=== PATIENT | male | born 1955 | race African-American/Black ===

== ENCOUNTER 2022-03-12 17:22 | Inpatient (IN) | payer OTHER, MEDICARE, MEDICAID, SELFPAY ==
--- NOTE | 2022-03-12 17:30 | ED_ITS ---
HPI - Psych General Stated Complaint: SEC 12,SI/HI,SAW BHN IN COMM,BED SEARCH IN PROG Time Seen by Provider: 03/12/22 17:30 Source: patient and EMS Mode of arrival: EMS Limitations: no limitations History of Present Illness HPI Narrative: Patient comes to the emergency room complaining depression, anxiety, suicidal ideation, plan to overdose on Seroquel. Patient states that earlier today, he took several tablets of gabapentin 600 mg, estimates he had about 8-10, also took 8-10 tablets of Xanax. Patient was seen earlier today at the [facility] outpatient center. Patient was Section 12 and brought to emergency room. Patient confirms that he has suicidal ideation, no homicidal ideation. Related Data Allergies Allergy/AdvReac Type Severity Reaction Status Date / Time Unable to Assess Allergy Verified 03/12/22 17:31 Review of Systems Review of Systems: Constitutional : No Weight loss, No Fever, No Chills, No Night Sweats, No Fatigue, No Malaise ENT/Mouth : No Hearing loss, No Ear Pain, No Nasal Congestion, No Sinus Pain, No Hoarseness, No sore throat, No Rhinorrhea, No Swallowing Difficulty Eyes: No Eye Pain, No Swelling, No Redness, No Foreign Body, No Discharge, No Vision Changes Cardiovascular : No Chest Pain, No SOB, No Dyspnea on Exertion, No Orthopnea, No Edema, No Palpitations Respiratory : No Cough, No Sputum, No Wheezing, No Smoke Exposure, No Dyspnea Gastrointestinal : No Nausea, No Vomiting, No Diarrhea, No Constipation, No abdominal Pain, No Hematochezia, No Melena Genitourinary : no irregular bleeding, No Dysuria, No Urinary Frequency, No Hematuria, No Urinary Incontinence, No Urgency, No Flank Pain, No Urinary Flow Changes, No Hesitancy Musculoskeletal : No joint pain, No Myalgias, No Joint Swelling Skin : No Skin Lesions, No rash Neuro : No Weakness, No Numbness, No Paresthesias, No Loss of Consciousness, No Dizziness, No Headache Psych : Complaining of anxiety, depression and suicidal ideation, no homicidal ideation Heme/Lymph: No Bruising, No Bleeding,No Lymphadenopathy Endocrine : No Polyuria, No Polydipsia, No Temperature Intolerance Physical Exam Const: Other: Appearance: Alert. Oriented X3. No acute distress. Eyes: Pupils equal, round and reactive to light. ENT: Pharynx normal. Neck: Normal inspection. Neck supple. No lymph nodes noted. No crepitus CVS: Normal heart rate and rhythm. Pulses normal. Normal S1 and S2 Respiratory: No respiratory distress. Breath sounds normal. No Wheezing. No rales Abdomen: Soft and nontender. No rigidity. No distention. Skin: Skin warm and dry. Normal skin color. Normal skin turgor. Extremities: No lower extremity edema. No Lacerations. No Rash Neuro: Oriented X 3. No motor deficit. No sensory deficit. Moving all e xtremities. No slurred speech. CN 2 through 12 grossly intact Psych: calm, cooperative, normal affect Course Course Course Narrative: All of patient's labs are pending. Seems the patient missed uses Xanax and gabapentin. Seems that patient refilled his medications 3 days ago and now they are all gone. Patient is on a Section 12. Discharge Plan Discharge Clinical Impression: Suicidal ideation Patient Disposition: Still a Patient
--- NOTE | 2022-03-12 17:31 | ECG_ITS ---
Test Reason : ALTERED MENTAL STATUS Blood Pressure : / mmHG Vent. Rate : 068 BPM Atrial Rate : 068 BPM P-R Int : 140 ms QRS Dur : 086 ms QT Int : 410 ms P-R-T Axes : 069 076 073 degrees QTc Int : 435 ms Sinus rhythm with Premature atrial complexes Otherwise normal ECG No previous ECGs available Referred By: Micaela Morley Electronically Signed By:Mehdi Rivera
[2022-03-12 17:57] VITALS: BP 118/74; BP 120/86; PULSE 70; PULSE 76; RESP 18; TEMP 36.8; O2SAT 98; O2SAT 99; BMI 22.4
[2022-03-12 18:45] LABS: MANUAL DIFF FLAG NO
[2022-03-12 18:54] LABS: Basophils Percent Auto 0.4 % (0-2); Eosinophils Absolute Auto 0.3 X10*3/uL (0.0-0.4); Eosinophils Percent Auto 5.2 % (0-4); Hematocrit 43.2 % (42.0-52.0); Hemoglobin 14.2 g/dl (14.0-18.0); Imm Gran Abs Auto 0.01 X10*3/uL (0.00-0.03); Imm Gran Pct Auto 0.2 % (0.0-0.4); Lymphocytes Absolute Auto 1.8 X10*3/uL (1.2-4.9); Lymphocytes Percent Auto 35.5 % (20-40); Mean Corpuscular HGB Conc 32.9 g/dl (31.0-36.0); Mean Corpuscular Hemoglobin 32.8 pg (27.0-33.0); Mean Corpuscular Volume 99.8 fL (80.0-98.0); Mean Platelet Volume 8.9 fL (9.4-12.4); Monocytes Absolute Auto 0.5 X10*3/uL (0.1-1.2); Monocytes Percent Auto 9.7 % (2-11); Neutrophils Absolute Auto 2.4 x10*3/uL (2.0-8.3); Platelet Count 162 X10*3/uL (160-400); Red Blood Count 4.33 X10*6/uL (4.60-5.80); Red Cell Distribution Width 12.1 % (11.0-16.0)
[2022-03-12 19:04] LABS: COVID-19 Test Negative (Negative)
[2022-03-12 19:07] LABS: Alanine Aminotransferase 8 U/L (0-40); Albumin Level 4.7 g/dL (3.5-5.0); Alkaline Phosphatase 64 U/L (39-117); Anion Gap 11 (12-20); Aspartate Amino Transferase 15 U/L (5-37); Bilirubin Direct 0.3 mg/dL (0.0-0.5); Bilirubin Total 0.7 mg/dL (0.0-1.0); Blood Urea Nitrogen 12 mg/dL (9-16); Calcium 9.2 mg/dL (8.4-10.2); Carbon Dioxide 29 mmol/L (22-29); Chloride 104 mmol/L (96-108); Creatinine Clr Calc Pharmacy 60.8; Estimated Glomerular Filt Rate 59; Ethanol < 10 mg/dL; Glucose Random 89 mg/dL (60-115); Potassium 3.9 mmol/L (3.3-5.1); Sodium 140 mmol/L (135-145); Total Protein 7.2 g/dL (6.5-8.0)
[2022-03-12 19:19] LABS: Acetaminophen LAB < 1 mcg/mL (<30); Salicylate < 5.0 mg/dL (15-30)
[2022-03-12 22:18] LABS: Appearance Urine CLEAR; Color Urine YELLOW; Glucose Urine UA NEG (NEG); Leukocyte Esterase Urine NEG (NEG); Nitrite Urine NEG (NEG); Urine Blood NEG (NEG); Urine Ketones NEG (NEG); Urine Protein NEG (NEG-TRACE)
[2022-03-13] MEDS: QUEtiapine Fumarate 400 MG TABLET 800 MG PO ×2 (01:15→19:31)
[2022-03-13 02:48] LABS: Amphetamine Screen Urine Not Detected (Not Detect); Barbiturates, Urine Not Detected (Not Detect); Benzodiazepines Screen Urine POSITIVE (Not Detect); Cannabinoid Screen Urine Not Detected (Not Detect); Cocaine Screen Urine POSITIVE (Not Detect); Fentanyl, urine Not Detected (Not Detect); Opiate Screen Urine Not Detected (Not Detect); Phencyclidine Screen Urine Not Detected (Not Detect)
[2022-03-13 05:57] VITALS: BP 92/63; PULSE 100; RESP 16; TEMP 36.1; O2SAT 96
--- NOTE | 2022-03-13 06:42 | PC.NURSE ---
Patient slept through the night, no distress observed/reported, medication compliant, disposition per [facility] is section 12 inpatient bed search, VSS, behavior suitable and non concerning, will continue to monitor.
--- NOTE | 2022-03-13 07:20 | PC.NURSE ---
patient appears to remain asleep at present respirations are even and unlabored patient appears in no distress
[2022-03-13] MEDS: Gabapentin 300 MG CAPSULE PO ×2 (08:05→14:32)
[2022-03-13] MEDS: Omeprazole 20 MG CAPSULE.DR PO (08:05)
[2022-03-13] MEDS: Folic Acid 1 MG TABLET PO (08:05)
[2022-03-13] MEDS: BRINZOLAMIDE BRIMONIDINE EYE-BOTH (08:55)
[2022-03-13] MEDS: [UNRECOGNIZED DRUG - OTHER] EYE-BOTH (08:55)
--- NOTE | 2022-03-13 16:18 | PC.ADMIT ---
Pt is a 66 year old male who [place] [facility] [place]x 1530 on a cv status. Pt is covid- tox screen + for cocaine and benzo. 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 Pt reported that his Lt eye is starting to give him trouble . Pt reported that he drinks about 5 32oz of beer daily along with cocaine and THC. Pt denied being in withdrawals and reported that he is just coming out of it . Pt reported that he has injured his neck and back in the past. Pt reported poor sleep and needing medications to aid in his sleep. Pt reported that he has had two falls before being admitted to the hospital. Pt reports that he has a VNA come visit him at his apartment. Pt reports that he has an electric wheel chair in his apartment that he uses to get around. Pt mentioned that he has a civil court pending due to an eviction pending. Per chart review, Pt was assessed by [facility] on 03/12 reporting increased depression, anxiety, and stress as well as SI earlier 03/12 w/plan, means and intent to Overdose on Seroquel just prior to getting through to [facility] Crisis. Pt reported increased anger & indicated thoughts to harm his neighbors whom he feels is responsible for pts pending eviction. Pt has additionally been presenting as high risk of unintentional harm to self due to misusing his prescription meds including Xanax & Gabapentin. Pt reportedly filled both on 03/09 & does not have any left, which he has also been taking while under the influence of alcohol daily. Provider called and notified of admission and orders. Start treatment plan and monitor for safety.
--- NOTE | 2022-03-13 16:46 | P.HPPS_ITS ---
HPI Date of Service: 03/13/22 Chief Complaint: depression anxiety xanax gabapentin overdose Sources of Information: patient interviewed, chart reviewed and crisis/core team assessment reviewed HPI Subjective Notes: Cheung Warning and Conditional Voluntary Healthcare Proxy: No Guardianship: No Medical Problems Affecting Mental Status: No Narrative: Pt is a 66 y.o. Male who carries a dx of crack cocaine abuse, alcohol use disorder, and Bipolar I DO. 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 Pt contacted [facility] crisis himself to request an assessment seeking CCS, after he had been denied from Detox due to them not accepting his insurance. He presented [place] [facility] [place]22 due to SI with plan to OD on his medications and disclosed a recent suicide attempt by overdosing on his medication, took 8-10 gabapentin 300 mg tabs and 8-10 Xanax 1 mg tabs. He is not in withdrawal, did not require medical attention. Pt refilled his m edications 3 days ago but they are all gone, appears to be misusing his medication. Precipitating factors include that his neighbor is racist towards him, feels he is responsible for pt's pending eviction. Pt is trying to work this out with the housing court. His brother also recently , which has brought up other losses the pt experienced. Pt has also been drinking daily, last drank a 32 oz beer on 03/12/22 but was not treated for withdrawal in the ED and currently denies any sx, prescribed xanax 1 mg TID and gabapentin 300 mg TID. His drinking behavior is new as of a few months ago, prior to that pt?s drug of choice was crack cocaine and he uses this when available. I evaluated the pt this evening and he reports he is at the hospital because respite didnt have a bed and his insurance would not cover detox. Pt denies withdrawing from alcohol or illicit substances. Says his neighbor ?is on the racist side,? believes he filed false reports about pt in order to get him evicted. Pt says he started abusing alcohol 4-5 months ago due to increased anxiety, only drinks beer but says this ?escalated to more and more beer.? Says he wants to ?catch it before gets too bad,? hx of attending AA. States his main stressor is ?to try to keep from being evicted,? working with community legal office administrator. Says his brother recently from complications of alcohol abuse, covid, and stroke. Mood is ?depressed,? continues to endorse passive SI with a plan to overdose on his prescription meds but denies intent and says he feels safe. Medical Evaluation Reviewed: Yes Diagnostics Vital Signs (24Hr): Vital Signs - 24 hr 03/12/22 17:57 03/13/22 05:57 Temperature 98.3 F 96.9 F Pulse Rate 76 100 Respiratory Rate 18 16 Blood Pressure 120/86 92/63 Pulse Oximetry 99 96 Oxygen Delivery Method Room Air Room Air BMI result Body Mass Index 22.4 Labs Results: 03/12/22 18:39 03/12/22 18:40 Labs: Laboratory Results - last 48 hr 03/12/22 03/12/22 03/12/22 18:39 18:39 18:40 WBC 5.0 RBC 4.33 L Hgb 14.2 Hct 43.2 MCV 99.8 H MCH 32.8 MCHC 32.9 RDW 12.1 Plt Count 162 MPV 8.9 L Immature Gran % (Auto) 0.2 Neut % (Auto) 49.0 Lymph % (Auto) 35.5 [place] % (Auto) 9.7 Eos % (Auto) 5.2 H Baso % (Auto) 0.4 Lymph # (Auto) 1.8 [place] # (Auto) 0.5 Eos # (Auto) 0.3 Baso # (Auto) 0.0 Abs Immat Gran (auto) 0.01 Absolute Neuts (auto) 2.4 Absolute Nucleated RBC 0.000 Nucleated RBC % (auto) 0.0 Sodium 140 Potassium 3.9 Chloride 104 Carbon Dioxide 29 Anion Gap 11 L BUN 12 Creatinine 1.23 Estim Creat Clear Calc 60.8 Estimated GFR 59 Random Glucose 89 Calcium 9.2 Total Bilirubin 0.7 Direct Bilirubin 0.3 AST 15 ALT 8 Alkaline Phosphatase 64 Total Protein 7.2 Albumin 4.7 Urine Color Urine Appearance Urine pH Ur Specific [place] Urine Protein Urine Glucose (UA) Urine Ketones Urine Blood Urine Nitrite Ur Leukocyte Esterase Salicylates < 5.0 L Urine Opiates Screen Urine Fentanyl Screen Acetaminophen < 1 Ur Barbiturates Screen Ur Phencyclidine Scrn Ur Amphetamines Screen U Benzodiazepines Scrn Urine Cocaine Screen U Marijuana (THC) Screen Ethyl Alcohol < 10 COVID-19 (LIANG) Negative COVID-19 Clin Com See Note 03/12/22 03/12/22 22:08 22:08 WBC RBC Hgb Hct MCV MCH MCHC RDW Plt Count MPV Immature Gran % (Auto) Neut % (Auto) Lymph % (Auto) [place] % (Auto) Eos % (Auto) Baso % (Auto) Lymph # (Auto) [place] # (Auto) Eos # (Auto) Baso # (Auto) Abs Immat Gran (auto) Absolute Neuts (auto) Absolute Nucleated RBC Nucleated RBC % (auto) Sodium Potassium Chloride Carbon Dioxide Anion Gap BUN Creatinine Estim Creat Clear Calc Estimated GFR Random Glucose Calcium Total Bilirubin Direct Bilirubin AST ALT Alkaline Phosphatase Total Protein Albumin Urine Color YELLOW Urine Appearance CLEAR Urine pH 6.0 Ur Specific [place] 1.020 Urine Protein NEG Urine Glucose (UA) NEG Urine Ketones NEG Urine Blood NEG Urine Nitrite NEG Ur Leukocyte Esterase NEG Salicylates Urine Opiates Screen Not Detected Urine Fentanyl Screen Not Detected Acetaminophen Ur Barbiturates Screen Not Detected Ur Phencyclidine Scrn Not Detected Ur Amphetamines Screen Not Detected U Benzodiazepines Scrn POSITIVE H Urine Cocaine Screen POSITIVE H U Marijuana (THC) Screen Not Detected Ethyl Alcohol COVID-19 (LIANG) COVID-19 Clin Com Meds/Allergies Meds Home Medications Medication Instructions Recorded Confirmed Type alprazolam 1 mg tablet 1 tab PO TID PRN Anxiety 03/12/22 03/12/22 History folic acid 1 mg tablet 1 tab PO DAILY 03/12/22 03/12/22 History gabapentin 300 mg capsule 1 cap PO TID 03/12/22 03/12/22 History omeprazole 20 mg capsule,delayed 1 cap PO DAILY 03/12/22 03/12/22 History release quetiapine 400 mg tablet 2 tab PO BEDTIME 03/12/22 03/12/22 History trazodone 100 mg tablet 1 tab PO BEDTIME 03/12/22 03/12/22 History brinzolamide 1 %-brimonidine 0.2 % 1 drp ophthalmic (eye) BID 03/13/22 03/13/22 History eye drops,suspension (Simbrinza) netarsudil 0.02 %-latanoprost 1 drp ophthalmic (eye) BEDTIME 03/13/22 03/13/22 History 0.005 % eye drops (Rocklatan) Allergies Allergies Allergy/AdvReac Type Severity Reaction Status Date / Time No Known Allergies Allergy Verified 03/12/22 21:52 Assessment & Plan Assessment & Plan (1) CRISTINA (generalized anxiety disorder): Status: Acute Code(s): F41.1 - Generalized anxiety disorder (2) Bipolar 1 disorder: Status: Acute Code(s): F31.9 - Bipolar disorder, unspecified (3) Alcohol use disorder, moderate, dependence: Status: Acute Code(s): F10.20 - Alcohol dependence, uncomplicated (4) Cocaine use disorder: Status: Acute Code(s): F14.10 - Cocaine abuse, uncomplicated Plan Pt is a 66 y.o. Male who carries a dx of crack cocaine abuse, alcohol use disorder, and Bipolar I DO. 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 Pt contacted [facility] crisis himself to request an assessment seeking CCS, after he had been denied from Detox due to them not accepting his insurance. He presented to [facility] [place] on 03/12/22 due to SI with plan to OD on his medications and disclosed a recent suicide attempt by overdosing on his medication. He is not in withdrawal, did not require medical attention. Pt refilled his medications 3 days ago but they are all gone, appears to be misusing his medication. Pt has also been drinking daily, last drank a 32 oz beer on 03/12/22 but was not treated for withdrawal in the ED and currently denies any sx, prescribed xanax 1 mg TID and gabapentin 300 mg TID. His increased drinking behavior is new as of a few months ago, prior to that pt?s drug of choice was crack cocaine and he uses this when available. Pt has long hx of stability on gabapentin 800 mg TID, xanax 1 mg QID, and seroquel 800 mg daily. He has remote hx of being on lithium but this was discontinued due to elevated creatinine. Pt's bipolar diagnosis is unclear, as he endorses sx of impulsivity, however no clear hx of manic episodes. It appears pt has been on mood stabilizing medication to manage anxiety, PTSD, panic sx,and to help with sleep. Plan: Will increase gabapentin to 400 mg TID for anxiety, neuropathic pain, and mood stability due to reported benefit on higher doses. understands that his xanax will likely not be restored to QID during this inpatient stay due to his alcohol and substance abuse. Pt may benefit from VNA and increased community services, has ACCS but has not been engaging as of late. Q15 min safety checks, CV Monitor response to medications. Monitor for safety in the milieu. Discharge on stabilization. Patient seen. Chart reviewed. Discussed with team. Obtain collateral contact info?as needed Patient educated on: medication risk/benefits and therapeutic strategies Reason for continued inpatient stay Substantial Risk for: harm to self, rapid decompensation and med/psych decompensation
[2022-03-13 17:24] VITALS: BP 116/62; PULSE 65
[2022-03-13] MEDS: traZODone HCL 100 MG TABLET PO (19:32)
[2022-03-13] MEDS: ALPRAZolam 0.5 MG TABLET 1 MG PO (19:32)
[2022-03-13] MEDS: Gabapentin 400 MG CAPSULE PO (19:33)
[2022-03-14 06:00] VITALS: BP 105/69; PULSE 91; TEMP 36.2; O2SAT 98
[2022-03-14] MEDS: [UNRECOGNIZED DRUG - OTHER] EYE-BOTH ×2 (08:36→20:46)
[2022-03-14] MEDS: BRINZOLAMIDE BRIMONIDINE EYE-BOTH ×2 (08:36→20:46)
[2022-03-14] MEDS: Gabapentin 400 MG CAPSULE PO ×3 (08:36→20:37)
[2022-03-14] MEDS: Folic Acid 1 MG TABLET PO (08:36)
[2022-03-14] MEDS: Omeprazole 20 MG CAPSULE.DR PO (08:37)
[2022-03-14 09:38] LABS: Cholesterol 171 mg/dL; HDL Cholesterol 72 mg/dL; LDL Cholesterol Calculated 86 mg/dl; Magnesium 2.1 mg/dL (1.6-2.6); Triglycerides 67 mg/dL
[2022-03-14 09:51] LABS: Estimated Average Glucose 77 mg/dL; Hemoglobin A1c % 4.3 %
[2022-03-14 10:02] LABS: Free T4 (Free Thyroxine) 0.76 ng/dL (0.71-1.85); Thyroid Stimulating Hormone 0.62 uIU/mL (0.32-4.0)
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
[2022-03-14 11:22] LABS: Folate 14.6 ng/mL (> or = 4.0); Vitamin B12 309 pg/mL (200-900)
[2022-03-14] MEDS: chlordiazePOXIDE HCl 5 MG CAPSULE 10 MG PO (15:40)
[2022-03-14] MEDS: Thiamine HCL 100 MG TABLET PO (15:41)
[2022-03-14 18:00] VITALS: BP 103/61; PULSE 63; RESP 18; TEMP 36.6; O2SAT 98
[2022-03-14] MEDS: QUEtiapine Fumarate 400 MG TABLET 800 MG PO (20:37)
[2022-03-14] MEDS: traZODone HCL 100 MG TABLET PO (20:37)
[2022-03-14] MEDS: ALPRAZolam 0.5 MG TABLET 1 MG PO (20:46)
[2022-03-15 06:34] VITALS: BP 92/54; PULSE 70; RESP 14; TEMP 37; O2SAT 96
[2022-03-15] MEDS: Folic Acid 1 MG TABLET PO (08:27)
[2022-03-15] MEDS: Gabapentin 400 MG CAPSULE PO ×3 (08:27→20:21)
[2022-03-15] MEDS: Omeprazole 20 MG CAPSULE.DR PO (08:27)
[2022-03-15] MEDS: Thiamine HCL 100 MG TABLET PO (08:28)
[2022-03-15] MEDS: BRINZOLAMIDE BRIMONIDINE EYE-BOTH ×2 (08:30→20:23)
[2022-03-15] MEDS: [UNRECOGNIZED DRUG - OTHER] EYE-BOTH ×2 (08:30→20:23)
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
[2022-03-15 18:00] VITALS: BP 109/79; PULSE 98; RESP 16; TEMP 36.6; O2SAT 99
[2022-03-15] MEDS: traZODone HCL 100 MG TABLET PO (20:21)
[2022-03-15] MEDS: QUEtiapine Fumarate 400 MG TABLET 800 MG PO (20:21)
[2022-03-16 06:00] VITALS: BP 94/53; PULSE 79; RESP 18; TEMP 36.5; O2SAT 96
[2022-03-16] MEDS: Omeprazole 20 MG CAPSULE.DR PO (08:34)
[2022-03-16] MEDS: Thiamine HCL 100 MG TABLET PO (08:34)
[2022-03-16] MEDS: Gabapentin 400 MG CAPSULE PO ×3 (08:34→19:38)
[2022-03-16] MEDS: clonazePAM 0.5 MG TABLET PO ×2 (08:34→14:20)
[2022-03-16] MEDS: Folic Acid 1 MG TABLET PO (08:34)
[2022-03-16] MEDS: [UNRECOGNIZED DRUG - OTHER] EYE-BOTH ×2 (12:18→19:41)
[2022-03-16] MEDS: BRINZOLAMIDE BRIMONIDINE EYE-BOTH ×2 (12:18→19:41)
--- NOTE | 2022-03-16 17:44 | HO.PSYADMNOT ---
HPI Date of Service: 03/16/22 Chief Complaint: depression anxiety xanax gabapentin overdose HPI Subjective Notes: [place] Warning Narrative: Patient seen and discussed with team. Patient evaluated today and upon interview he reports he feels good, not bad. Says they are feeding me well. Discussed increasing gabapentin to 600 mg TID in effort to restore home dose of 1000 mg TID. Wants to stay on xanax. Continues to complain of pain and seems to think xanax helps with pain. In the milieu, patient is safe and appropriate in behavior. Denies SI/SIB/HI upon inquiry. Denies irritability or assaultive ideation. Says he feels safe. Diagnostics Vital Signs (24Hr): Vital Signs - 24 hr 03/15/22 18:00 03/16/22 06:00 Temperature 97.9 F 97.7 F Pulse Rate 98 79 Respiratory Rate 16 18 Blood Pressure 109/79 94/53 L Pulse Oximetry 99 96 Oxygen Delivery Method Room Air Room Air BMI result Body Mass Index 22.4 Labs Results: 03/12/22 18:39 03/12/22 18:40 Meds/Allergies Meds Home Medications Medication Instructions Recorded Confirmed Type alprazolam 1 mg tablet 1 tab PO TID PRN Anxiety 03/12/22 03/12/22 History folic acid 1 mg tablet 1 tab PO DAILY 03/12/22 03/12/22 History gabapentin 300 mg capsule 1 cap PO TID 03/12/22 03/12/22 History omeprazole 20 mg capsule,delayed 1 cap PO DAILY 03/12/22 03/12/22 History release quetiapine 400 mg tablet 2 tab PO BEDTIME 03/12/22 03/12/22 History trazodone 100 mg tablet 1 tab PO BEDTIME 03/12/22 03/12/22 History brinzolamide 1 %-brimonidine 0.2 % 1 drp ophthalmic (eye) BID 03/13/22 03/13/22 History eye drops,suspension (Simbrinza) netarsudil 0.02 %-latanoprost 1 drp ophthalmic (eye) BEDTIME 03/13/22 03/13/22 History 0.005 % eye drops (Rocklatan) Allergies Allergies Allergy/AdvReac Type Severity Reaction Status Date / Time No Known Allergies Allergy Verified 03/12/22 21:52 Mental Status Exam Mental Status Exam Narrative: Pt is alert and oriented; behavior is cooperative, friendly and calm; patient is not in distress; dressed in casual attire with unkempt hair and marginal hygiene; mood is described as alright and affect congruent; eye contact appropriate; Speech is normal rate, volume and prosody and not pressured; no psychomotor agitation/retardation present; thought process is organized and goal directed; Thought content is on tx, eviction; otherwise pertinent to relevant topics and without any delusional content, paranoid ideations or grandiosity; still with some SI; no HI. There is no evidence of perceptual disturbance. ?Patients insight and judgment appear intact.
[2022-03-16 18:00] VITALS: BP 110/66; PULSE 83; TEMP 36.6; O2SAT 97
[2022-03-16] MEDS: Magnesium Hydrox/Alum Hydrox 30 ML ORAL.SUSP PO (19:37)
[2022-03-16] MEDS: traZODone HCL 100 MG TABLET PO (19:37)
[2022-03-16] MEDS: QUEtiapine Fumarate 400 MG TABLET 800 MG PO (19:37)
--- NOTE | 2022-03-16 23:09 | HO.PSYCHPN ---
Subjective Subjective Date of Service: 03/16/22 Reason For Visit: depression anxiety xanax gabapentin overdose Subjective Notes: Cheung Warning Interim History: Patient seen and discussed with team. Patient evaluated today and upon interview he reports he feels good, not bad. Says they are feeding me well. Discussed increasing gabapentin to 600 mg TID in effort to restore home dose of 1000 mg TID. Wants to stay on xanax. Continues to complain of pain and seems to think xanax helps with pain. In the milieu, patient is safe and appropriate in behavior. Denies SI/SIB/HI upon inquiry. Denies irritability or assaultive ideation. Says he feels safe. Mental Status Exam Mental Status Exam Narrative: Pt is alert and oriented; behavior is cooperative, friendly and calm; patient is not in distress; dressed in casual attire with unkempt hair and marginal hygiene; mood is described as alright and affect congruent; eye contact appropriate; Speech is normal rate, volume and prosody and not pressured; no psychomotor agitation/retardation present; thought process is organized and goal directed; Thought content is on tx, eviction; otherwise pertinent to relevant topics and without any delusional content, paranoid ideations or grandiosity; still with some SI; no HI. There is no evidence of perceptual disturbance. Patients insight and judgment appear intact. Diagnostics Vital Signs (24Hr): Vital Signs - 24 hr 03/16/22 06:00 03/16/22 18:00 Temperature 97.7 F 98 F Pulse Rate 79 83 Respiratory Rate 18 Blood Pressure 94/53 L 110/66 Pulse Oximetry 96 97 Oxygen Delivery Method Room Air BMI result Body Mass Index 22.4 Labs Results: 03/12/22 18:39 03/12/22 18:40 Medications Medications Current Medications Acetaminophen (Acetaminophen 325 Mg Tablet) 650 mg PO Q6H PRN PRN Reason: Headache/Pain Mild Scale (1-3) Al Hydroxide/Mg Hydroxide (Magnesium Hydrox/Alum Hydrox 30 Ml Oral.Susp) 30 ml PO Q6H PRN PRN Reason: Heartburn/Nausea Last Admin: 03/16/22 19:37 Dose: 30 ml Alprazolam (Alprazolam 0.5 Mg Tablet) 1 mg PO TID PRN PRN Reason: anxiety Clonazepam (Clonazepam 0.5 Mg Tablet) 0.5 mg PO BID@0900,1400 [facility] Last Admin: 03/16/22 14:20 Dose: 0.5 mg Clonidine HCl (Clonidine Hcl 0.1 Mg Tablet) 0.1 mg PO TID PRN; Protocol PRN Reason: hyperarousal Folic Acid (Folic Acid 1 Mg Tablet) 1 mg PO DAILY [facility] Last Admin: 03/16/22 08:34 Dose: 1 mg Gabapentin (Gabapentin 300 Mg Capsule) 600 mg PO TID [facility] Hydroxyzine HCl (Hydroxyzine Hcl 25 Mg Tablet) 25 mg PO Q6H PRN PRN Reason: Anxiety Ibuprofen (Ibuprofen 800 Mg Tablet) 800 mg PO TID PRN PRN Reason: mod pain Magnesium Hydroxide (Milk Of Magnesia 30 Ml Oral.Susp) 30 ml PO DAILY PRN PRN Reason: Constipation Non-Formulary Medication (Brinzolamide-Brimonidine [Simbrinza]) 1 drop EYE-BOTH BID [facility] Last Admin: 03/16/22 19:41 Dose: 1 drop Non-Formulary Medication (Netarsudil-Latanoprost [Rocklatan]) 1 drop EYE-BOTH BEDTIME [facility] Last Admin: 03/16/22 19:40 Dose: 1 drop Pt Own ( (Methazolamide 50 Mg)) 50 mg PO TID [facility] Last Admin: 03/16/22 20:08 Dose: 50 mg Omeprazole (Omeprazole 40 Mg Capsule.Dr) 40 mg PO DAILY [facility] Quetiapine Fumarate (Quetiapine Fumarate 400 Mg Tablet) 800 mg PO BEDTIME [facility] Last Admin: 03/16/22 19:37 Dose: 800 mg Thiamine HCl (Thiamine Hcl 100 Mg Tablet) 100 mg PO DAILY [facility] Last Admin: 03/16/22 08:34 Dose: 100 mg Trazodone HCl (Trazodone Hcl 100 Mg Tablet) 100 mg PO BEDTIME [facility] Last Admin: 03/16/22 19:37 Dose: 100 mg Allergies Allergies Allergy/AdvReac Type Severity Reaction Status Date / Time No Known Allergies Allergy Verified 03/12/22 21:52 Assessment & Plan Assessment & Plan (1) CRISTINA (generalized anxiety disorder): Status: Acute Code(s): F41.1 - Generalized anxiety disorder (2) Bipolar 1 disorder: Status: Acute Code(s): F31.9 - Bipolar disorder, unspecified (3) Alcohol use disorder, moderate, dependence: Status: Acute Code(s): F10.20 - Alcohol dependence, uncomplicated (4) Cocaine use disorder: Status: Acute Code(s): F14.10 - Cocaine abuse, uncomplicated Plan Pt is a 66 y.o. Male who carries a dx of crack cocaine abuse, alcohol use disorder, and Bipolar I DO. 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 Pt contacted [facility] himself to request an assessment seeking CCS, after he had been denied from [facility] due to them not accepting his insurance. He presented to [facility] ED on 03/12/22 due to SI with plan to OD on his medications and disclosed a recent suicide attempt by overdosing on his medication. He is not in withdrawal, did not require medical attention. Pt refilled his medications 3 days ago but they are all gone, appears to be misusing his medication. Pt has also been drinking daily, last drank a 32 oz beer on 03/12/22 but was not treated for withdrawal in the ED and currently denies any sx, prescribed xanax 1 mg TID and gabapentin 300 mg TID. His increased drinking behavior is new as of a few months ago, prior to that pt?s drug of choice was crack cocaine and he uses this when available. Pt has long hx of stability on gabapentin 800 mg TID, xanax 1 mg QID, and seroquel 800 mg daily. He has remote hx of being on lithium but this was discontinued due to elevated creatinine. Pt's bipolar diagnosis is unclear, as he endorses sx of impulsivity, however no clear hx of manic episodes. It appears pt has been on mood stabilizing medication to manage anxiety, PTSD, panic sx,and to help with sleep. 03/15 reports mood is better and no SI; patient wants to stay on Xanax and wants gabapentin increased back to 1000 t.i.d. for neuropathic pain.? Patient admits to prescription medication abuse, but minimizes the significance of it.? He says he is just starting with a VNA/lock box.? Final Inspector Balance Wheel agrees that if this is in place and patient is only getting 1 week worth of medications (instead of the 30 day supply) that it is possible he could be continued on Xanax 1 mg t.i.d.,, which he has been getting for almost 2 years, and the gabapentin could be increased back to home dose. 03/16 Will increase gabapentin to 600 mg TID Plan: Q15 min safety checks, CV continue Xanax 1mg TID (pt on this for 2 years) for now. Added Librium to help with w/drawals gabapentin to 400 mg TID for anxiety, neuropathic pain, and mood stability due to reported benefit on higher doses. understands that his xanax will likely not be restored to QID during this inpatient stay due to his alcohol and substance abuse. Pt has weekly VNA and increased community services; need to confirm locked box has ACCS but has not been engaging as of late. Monitor response to medications. Monitor for safety in the milieu. Discharge on stabilization. Patient seen. Chart reviewed. Discussed with team. Obtain collateral contact info as needed I spent minutes with the patient and/or on the patient floor today, greater than?50% of which was spent counseling/coordinating care. Patient educated on: medication risk/benefits Reason for contiued inpatient stay Substantial Risk for: med/psych decompensation
[2022-03-17 06:00] VITALS: BP 106/62; PULSE 78; RESP 18; TEMP 36.6; O2SAT 98
[2022-03-17] MEDS: clonazePAM 0.5 MG TABLET PO (08:50)
[2022-03-17] MEDS: Thiamine HCL 100 MG TABLET PO (08:50)
[2022-03-17] MEDS: Omeprazole 40 MG CAPSULE.DR PO (08:50)
[2022-03-17] MEDS: Folic Acid 1 MG TABLET PO (08:50)
[2022-03-17] MEDS: Gabapentin 300 MG CAPSULE 600 MG PO ×3 (08:50→21:04)
--- NOTE | 2022-03-17 11:40 | HO.PSYCHPN ---
Subjective Subjective Date of Service: 03/17/22 Reason For Visit: depression anxiety xanax gabapentin overdose Subjective Notes: Conditional Voluntary Healthcare Proxy: No Guardianship: No Medical Problems Affecting Mental Status: No Interim History: Patient was seen and discussed in rounds today. Records and plans were reviewed. He states that he continues to be quite anxious and isolative because of it. She he was recently put on Klonopin 0.5 mg b.i.d. and Xanax p.r.n. was maintained. I will increase the Klonopin to 1 mg b.i.d. for now. No suicidal ideations. Eating and sleeping adequately. No other changes were made today Medication Compliance: Yes Diagnostics Vital Signs (24Hr): Vital Signs - 24 hr 03/16/22 18:00 03/17/22 06:00 Temperature 98 F 97.9 F Pulse Rate 83 78 Respiratory Rate 18 Blood Pressure 110/66 106/62 Pulse Oximetry 97 98 BMI result Body Mass Index 22.4 Labs Results: 03/12/22 18:39 03/12/22 18:40 Medications Medications Current Medications Acetaminophen (Acetaminophen 325 Mg Tablet) 650 mg PO Q6H PRN PRN Reason: Headache/Pain Mild Scale (1-3) Al Hydroxide/Mg Hydroxide (Magnesium Hydrox/Alum Hydrox 30 Ml Oral.Susp) 30 ml PO Q6H PRN PRN Reason: Heartburn/Nausea Last Admin: 03/16/22 19:37 Dose: 30 ml Alprazolam (Alprazolam 0.5 Mg Tablet) 1 mg PO TID PRN PRN Reason: anxiety Clonidine HCl (Clonidine Hcl 0.1 Mg Tablet) 0.1 mg PO TID PRN; Protocol PRN Reason: hyperarousal Folic Acid (Folic Acid 1 Mg Tablet) 1 mg PO DAILY [facility] Last Admin: 03/17/22 08:50 Dose: 1 mg Gabapentin (Gabapentin 300 Mg Capsule) 600 mg PO TID [facility] Last Admin: 03/17/22 08:50 Dose: 600 mg Hydroxyzine HCl (Hydroxyzine Hcl 25 Mg Tablet) 25 mg PO Q6H PRN PRN Reason: Anxiety Ibuprofen (Ibuprofen 800 Mg Tablet) 800 mg PO TID PRN PRN Reason: mod pain Magnesium Hydroxide (Milk Of Magnesia 30 Ml Oral.Susp) 30 ml PO DAILY PRN PRN Reason: Constipation Non-Formulary Medication (Brinzolamide-Brimonidine [Simbrinza]) 1 drop EYE-BOTH BID [facility] Last Admin: 03/16/22 19:41 Dose: 1 drop Non-Formulary Medication (Netarsudil-Latanoprost [Rocklatan]) 1 drop EYE-BOTH BEDTIME [facility] Last Admin: 03/16/22 19:40 Dose: 1 drop Pt Own ( (Methazolamide 50 Mg)) 50 mg PO TID [facility] Last Admin: 03/17/22 08:50 Dose: 50 mg Omeprazole (Omeprazole 40 Mg Capsule.Dr) 40 mg PO DAILY [facility] Last Admin: 03/17/22 08:50 Dose: 40 mg Quetiapine Fumarate (Quetiapine Fumarate 400 Mg Tablet) 800 mg PO BEDTIME [facility] Last Admin: 03/16/22 19:37 Dose: 800 mg Thiamine HCl (Thiamine Hcl 100 Mg Tablet) 100 mg PO DAILY [facility] Last Admin: 03/17/22 08:50 Dose: 100 mg Trazodone HCl (Trazodone Hcl 100 Mg Tablet) 100 mg PO BEDTIME [facility] Last Admin: 03/16/22 19:37 Dose: 100 mg Allergies Allergies Allergy/AdvReac Type Severity Reaction Status Date / Time No Known Allergies Allergy Verified 03/12/22 21:52 Assessment & Plan Assessment & Plan (1) CRISTINA (generalized anxiety disorder): Status: Acute Code(s): F41.1 - Generalized anxiety disorder (2) Bipolar 1 disorder: Status: Acute Code(s): F31.9 - Bipolar disorder, unspecified (3) Alcohol use disorder, moderate, dependence: Status: Acute Code(s): F10.20 - Alcohol dependence, uncomplicated (4) Cocaine use disorder: Status: Acute Code(s): F14.10 - Cocaine abuse, uncomplicated Plan Pt is a 66 y.o. Male who carries a dx of crack cocaine abuse, alcohol use disorder, and Bipolar I DO. 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 Pt contacted [facility] crisis himself to request an assessment seeking CCS, after he had been denied from [facility] due to them not accepting his insurance. He presented to [facility] ED on 03/12/22 due to SI with plan to OD on his medications and disclosed a recent suicide attempt by overdosing on his medication. He is not in withdrawal, did not require medical attention. Pt refilled his medications 3 days ago but they are all gone, appears to be misusing his medication. Pt has also been drinking daily, last drank a 32 oz beer on 03/12/22 but was not treated for withdrawal in the ED and currently denies any sx, prescribed xanax 1 mg TID and gabapentin 300 mg TID. His increased drinking behavior is new as of a few months ago, prior to that pt?s drug of choice was crack cocaine and he uses this when available. Pt has long hx of stability on gabapentin 800 mg TID, xanax 1 mg QID, and seroquel 800 mg daily. He has remote hx of being on lithium but this was discontinued due to elevated creatinine. Pt's bipolar diagnosis is unclear, as he endorses sx of impulsivity, however no clear hx of manic episodes. It appears pt has been on mood stabilizing medication to manage anxiety, PTSD, panic sx,and to help with sleep. 03/15 reports mood is better and no SI; patient wants to stay on Xanax and wants gabapentin increased back to 1000 t.i.d. for neuropathic pain.? Patient admits to prescription medication abuse, but minimizes the significance of it.? He says he is just starting with a VNA/lock box.? Stitch Cleaner agrees that if this is in place and patient is only getting 1 week worth of medications (instead of the 30 day supply) that it is possible he could be continued on Xanax 1 mg t.i.d.,, which he has been getting for almost 2 years, and the gabapentin could be increased back to home dose. 03/16 Will increase gabapentin to 600 mg TID 03/17: Increase Klonopin to 1 mg b.i.d.. Plan: Q15 min safety checks, CV continue Xanax 1mg TID (pt on this for 2 years) for now. Added Librium to help with w/drawals gabapentin to 400 mg TID for anxiety, neuropathic pain, and mood stability due to reported benefit on higher doses. understands that his xanax will likely not be restored to QID during this inpatient stay due to his alcohol and substance abuse. Pt has weekly VNA and increased community services; need to confirm locked box has ACCS but has not been engaging as of late. Monitor response to medications. Monitor for safety in the milieu. Discharge on stabilization. Patient seen. Chart reviewed. Discussed with team. Obtain collateral contact info as needed I spent minutes with the patient and/or on the patient floor today, greater than?50% of which was spent counseling/coordinating care. Patient educated on: medication risk/benefits Reason for contiued inpatient stay Substantial Risk for: med/psych decompensation
[2022-03-17] MEDS: [UNRECOGNIZED DRUG - OTHER] EYE-BOTH ×2 (12:21→21:05)
[2022-03-17] MEDS: BRINZOLAMIDE BRIMONIDINE EYE-BOTH ×2 (12:21→21:05)
[2022-03-17] MEDS: clonazePAM 1 MG TABLET PO (14:30)
[2022-03-17 16:59] VITALS: BP 104/52; PULSE 78; RESP 20; TEMP 36.2; O2SAT 95
[2022-03-17] MEDS: traZODone HCL 100 MG TABLET PO (21:04)
[2022-03-17] MEDS: QUEtiapine Fumarate 400 MG TABLET 800 MG PO (21:04)
[2022-03-17] MEDS: Ibuprofen 800 MG TABLET PO (21:13)
[2022-03-18 06:00] VITALS: BP 111/76; PULSE 83; RESP 18; TEMP 36.3; O2SAT 98
--- NOTE | 2022-03-18 08:06 | P.PNPSI_ITS ---
Subjective Subjective Date of Service: 03/18/22 Reason For Visit: depression anxiety xanax gabapentin overdose Subjective Notes: Conditional Voluntary Healthcare Proxy: No Guardianship: No Medical Problems Affecting Mental Status: No Interim History: Patient was seen and discussed in rounds today. Records and plans were reviewed. He is doing better with his anxiety with the increase of Klonopin. He did use the p.r.n. Xanax on 1 occasion yesterday. He denies any side effects. Eating and sleeping adequately. He continues to be mostly isolative and in his room but this morning he was out and about and sitting in the dining room. No SI. No changes were made today Medication Compliance: Yes Review of Systems Review of Systems Yes all other systems are reviewed and are negative Diagnostics Vital Signs (24Hr): Vital Signs - 24 hr 03/17/22 16:59 03/18/22 06:00 Temperature 97.1 F 97.4 F Pulse Rate 78 83 Respiratory Rate 20 18 Blood Pressure 104/52 L 111/76 Pulse Oximetry 95 98 Oxygen Delivery Method Room Air BMI result Body Mass Index 22.4 Labs Results: 03/12/22 18:39 03/12/22 18:40 Medications Medications Current Medications Acetaminophen (Acetaminophen 325 Mg Tablet) 650 mg PO Q6H PRN PRN Reason: Headache/Pain Mild Scale (1-3) Al Hydroxide/Mg Hydroxide (Magnesium Hydrox/Alum Hydrox 30 Ml Oral.Susp) 30 ml PO Q6H PRN PRN Reason: Heartburn/Nausea Last Admin: 03/16/22 19:37 Dose: 30 ml Alprazolam (Alprazolam 0.5 Mg Tablet) 1 mg PO TID PRN PRN Reason: anxiety Clonazepam (Clonazepam 1 Mg Tablet) 1 mg PO BID@0900,1400 [facility] Last Admin: 03/17/22 14:30 Dose: 1 mg Clonidine HCl (Clonidine Hcl 0.1 Mg Tablet) 0.1 mg PO TID PRN; Protocol PRN Reason: hyperarousal Folic Acid (Folic Acid 1 Mg Tablet) 1 mg PO DAILY [facility] Last Admin: 03/17/22 08:50 Dose: 1 mg Gabapentin (Gabapentin 300 Mg Capsule) 600 mg PO TID [facility] Last Admin: 03/17/22 21:04 Dose: 600 mg Hydroxyzine HCl (Hydroxyzine Hcl 25 Mg Tablet) 25 mg PO Q6H PRN PRN Reason: Anxiety Ibuprofen (Ibuprofen 800 Mg Tablet) 800 mg PO TID PRN PRN Reason: mod pain Last Admin: 03/17/22 21:13 Dose: 800 mg Magnesium Hydroxide (Milk Of Magnesia 30 Ml Oral.Susp) 30 ml PO DAILY PRN PRN Reason: Constipation Non-Formulary Medication (Brinzolamide-Brimonidine [Simbrinza]) 1 drop EYE-BOTH BID [facility] Last Admin: 03/17/22 21:05 Dose: 1 drop Non-Formulary Medication (Netarsudil-Latanoprost [Rocklatan]) 1 drop EYE-BOTH BEDTIME [facility] Last Admin: 03/17/22 21:06 Dose: 1 drop Pt Own ( (Methazolamide 50 Mg)) 50 mg PO TID [facility] Last Admin: 03/17/22 21:04 Dose: 50 mg Omeprazole (Omeprazole 40 Mg Capsule.Dr) 40 mg PO DAILY [facility] Last Admin: 03/17/22 08:50 Dose: 40 mg Quetiapine Fumarate (Quetiapine Fumarate 400 Mg Tablet) 800 mg PO BEDTIME [facility] Last Admin: 03/17/22 21:04 Dose: 800 mg Thiamine HCl (Thiamine Hcl 100 Mg Tablet) 100 mg PO DAILY [facility] Last Admin: 03/17/22 08:50 Dose: 100 mg Trazodone HCl (Trazodone Hcl 100 Mg Tablet) 100 mg PO BEDTIME [facility] Last Admin: 03/17/22 21:04 Dose: 100 mg Allergies Allergies Allergy/AdvReac Type Severity Reaction Status Date / Time No Known Allergies Allergy Verified 03/12/22 21:52 Assessment & Plan Assessment & Plan (1) CRISTINA (generalized anxiety disorder): Status: Acute Code(s): F41.1 - Generalized anxiety disorder (2) Bipolar 1 disorder: Status: Acute Code(s): F31.9 - Bipolar disorder, unspecified (3) Alcohol use disorder, moderate, dependence: Status: Acute Code(s): F10.20 - Alcohol dependence, uncomplicated (4) Cocaine use disorder: Status: Acute Code(s): F14.10 - Cocaine abuse, uncomplicated Plan Pt is a 66 y.o. Male who carries a dx of crack cocaine abuse, alcohol use disorder, and Bipolar I DO. 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 Pt contacted [facility] crisis himself to request an assessment seeking CCS, after he had been denied from [facility] due to them not accepting his insurance. He presented to [facility] ED on 03/12/22 due to SI with plan to OD on his medications and disclosed a recent suicide attempt by overdosing on his medication. He is not in withdrawal, did not require medical attention. Pt refilled his medications 3 days ago but they are all gone, appears to be misusing his medication. Pt has also been drinking daily, last drank a 32 oz beer on 03/12/22 but was not treated for withdrawal in the ED and currently denies any sx, prescribed xanax 1 mg TID and gabapentin 300 mg TID. His increased drinking behavior is new as of a few months ago, prior to that pt?s drug of choice was crack cocaine and he uses this when available. Pt has long hx of stability on gabapentin 800 mg TID, xanax 1 mg QID, and seroquel 800 mg daily. He has remote hx of being on lithium but this was discontinued due to elevated creatinine. Pt's bipolar diagnosis is unclear, as he endorses sx of impulsivity, however no clear hx of manic episodes. It appears pt has been on mood stabilizing medication to manage anxiety, PTSD, panic sx,and to help with sleep. 03/15 reports mood is better and no SI; patient wants to stay on Xanax and wants gabapentin increased back to 1000 t.i.d. for neuropathic pain.? Patient admits to prescription medication abuse, but minimizes the significance of it.? He says he is just starting with a VNA/lock box.? Van Owner Operator agrees that if this is in place and patient is only getting 1 week worth of medications (instead of the 30 day supply) that it is possible he could be continued on Xanax 1 mg t.i.d.,, which he has been getting for almost 2 years, and the gabapentin could be increased back to home dose. 03/16 Will increase gabapentin to 600 mg TID 03/17: Increase Klonopin to 1 mg b.i.d 03/18: Continue current regimen and plans Plan: Q15 min safety checks, CV continue Xanax 1mg TID (pt on this for 2 years) for now. Added Librium to help with w/drawals gabapentin to 400 mg TID for anxiety, neuropathic pain, and mood stability due to reported benefit on higher doses. understands that his xanax will likely not be restored to QID during this inpatient stay due to his alcohol and substance abuse. Pt has weekly VNA and increased community services; need to confirm locked box has ACCS but has not been engaging as of late. Monitor response to medications. Monitor for safety in the milieu. Discharge on stabilization. Patient seen. Chart reviewed. Discussed with team. Obtain collateral contact info as needed I spent minutes with the patient and/or on the patient floor today, greater than?50% of which was spent counseling/coordinating care. Reason for contiued inpatient stay Substantial Risk for: med/psych decompensation
[2022-03-18] MEDS: clonazePAM 1 MG TABLET PO ×2 (08:26→14:07)
[2022-03-18] MEDS: Omeprazole 40 MG CAPSULE.DR PO (08:26)
[2022-03-18] MEDS: Folic Acid 1 MG TABLET PO (08:26)
[2022-03-18] MEDS: Gabapentin 300 MG CAPSULE 600 MG PO ×3 (08:27→19:21)
[2022-03-18] MEDS: Thiamine HCL 100 MG TABLET PO (08:27)
[2022-03-18] MEDS: [UNRECOGNIZED DRUG - OTHER] EYE-BOTH (12:49)
[2022-03-18] MEDS: BRINZOLAMIDE BRIMONIDINE EYE-BOTH (12:49)
[2022-03-18] MEDS: ALPRAZolam 0.5 MG TABLET 1 MG PO ×2 (13:04→19:22)
[2022-03-18 16:56] VITALS: BP 97/52; PULSE 80; RESP 20; TEMP 36.6; O2SAT 96
[2022-03-18] MEDS: traZODone HCL 100 MG TABLET PO (19:21)
[2022-03-18] MEDS: QUEtiapine Fumarate 400 MG TABLET 800 MG PO (19:22)
[2022-03-18] MEDS: Magnesium Hydrox/Alum Hydrox 30 ML ORAL.SUSP PO (23:34)
[2022-03-18] MEDS: hydrOXYzine HCL 25 MG TABLET PO (23:34)
[2022-03-19 06:00] VITALS: BP 109/62; PULSE 86; RESP 18; TEMP 36.6; O2SAT 97
[2022-03-19] MEDS: Thiamine HCL 100 MG TABLET PO (08:47)
[2022-03-19] MEDS: clonazePAM 1 MG TABLET PO ×2 (08:47→14:18)
[2022-03-19] MEDS: Omeprazole 40 MG CAPSULE.DR PO (08:47)
[2022-03-19] MEDS: Gabapentin 300 MG CAPSULE 600 MG PO ×3 (08:47→20:23)
[2022-03-19] MEDS: Folic Acid 1 MG TABLET PO (08:47)
[2022-03-19] MEDS: [UNRECOGNIZED DRUG - OTHER] EYE-BOTH ×2 (13:03→20:23)
[2022-03-19] MEDS: BRINZOLAMIDE BRIMONIDINE EYE-BOTH ×2 (13:03→20:23)
[2022-03-19 18:00] VITALS: BP 91/54; PULSE 70; TEMP 36.6; O2SAT 98
--- NOTE | 2022-03-19 18:54 | HO.PSYCHPN ---
Subjective Subjective Date of Service: 03/19/22 Reason For Visit: depression anxiety xanax gabapentin overdose Interim History: Patient reports that his mood is better and he remains without any SI. He also says anxiety is better. He is responding well to the clonazepam that was started over the weekend and has not taking p.r.n. Xanax today. Patient also says that his pain is a little better. He said he would like to discharge soon, hopefully to the [facility] [place]. Will continue to discuss with team. Mental Status Exam Mental Status Exam Narrative: Pt is alert and oriented; behavior is cooperative, friendly and calm; patient is not in distress; dressed in casual attire with unkempt hair but adequatel hygiene; mood is described as better and affect congruent; eye contact appropriate; Speech is normal rate, volume and prosody and not pressured; no psychomotor agitation/retardation present; thought process is organized and goal directed; Thought content is on tx, disposition; otherwise pertinent to relevant topics and without any delusional content, paranoid ideations or grandiosity; no SI; no HI. There is no evidence of perceptual disturbance. Patients insight and judgment appear intact. Diagnostics Vital Signs (24Hr): Vital Signs - 24 hr 03/19/22 06:00 Temperature 97.9 F Pulse Rate 86 Respiratory Rate 18 Blood Pressure 109/62 Pulse Oximetry 97 BMI result Body Mass Index 22.4 Labs Results: 03/12/22 18:39 03/12/22 18:40 Medications Medications Current Medications Acetaminophen (Acetaminophen 325 Mg Tablet) 650 mg PO Q6H PRN PRN Reason: Headache/Pain Mild Scale (1-3) Al Hydroxide/Mg Hydroxide (Magnesium Hydrox/Alum Hydrox 30 Ml Oral.Susp) 30 ml PO Q6H PRN PRN Reason: Heartburn/Nausea Last Admin: 03/18/22 23:34 Dose: 30 ml Alprazolam (Alprazolam 0.5 Mg Tablet) 1 mg PO TID PRN PRN Reason: anxiety Last Admin: 03/18/22 19:22 Dose: 1 mg Clonazepam (Clonazepam 1 Mg Tablet) 1 mg PO BID@0900,1400 LARISSA Last Admin: 03/19/22 14:18 Dose: 1 mg Clonidine HCl (Clonidine Hcl 0.1 Mg Tablet) 0.1 mg PO TID PRN; Protocol PRN Reason: hyperarousal Folic Acid (Folic Acid 1 Mg Tablet) 1 mg PO DAILY [facility] Last Admin: 03/19/22 08:47 Dose: 1 mg Gabapentin (Gabapentin 300 Mg Capsule) 600 mg PO TID [facility] Last Admin: 03/19/22 14:18 Dose: 600 mg Hydroxyzine HCl (Hydroxyzine Hcl 25 Mg Tablet) 25 mg PO Q6H PRN PRN Reason: Anxiety Last Admin: 03/18/22 23:34 Dose: 25 mg Ibuprofen (Ibuprofen 800 Mg Tablet) 800 mg PO TID PRN PRN Reason: mod pain Last Admin: 03/17/22 21:13 Dose: 800 mg Magnesium Hydroxide (Milk Of Magnesia 30 Ml Oral.Susp) 30 ml PO DAILY PRN PRN Reason: Constipation Non-Formulary Medication (Brinzolamide-Brimonidine [Simbrinza]) 1 drop EYE-BOTH BID [facility] Last Admin: 03/19/22 13:03 Dose: 1 drop Non-Formulary Medication (Netarsudil-Latanoprost [Rocklatan]) 1 drop EYE-BOTH BEDTIME [facility] Last Admin: 03/18/22 19:30 Dose: Not Given Pt Own ( (Methazolamide 50 Mg)) 50 mg PO TID [facility] Last Admin: 03/19/22 14:18 Dose: 50 mg Omeprazole (Omeprazole 40 Mg Capsule.Dr) 40 mg PO DAILY [facility] Last Admin: 03/19/22 08:47 Dose: 40 mg Quetiapine Fumarate (Quetiapine Fumarate 400 Mg Tablet) 800 mg PO BEDTIME [facility] Last Admin: 03/18/22 19:22 Dose: 800 mg Thiamine HCl (Thiamine Hcl 100 Mg Tablet) 100 mg PO DAILY [facility] Last Admin: 03/19/22 08:47 Dose: 100 mg Trazodone HCl (Trazodone Hcl 100 Mg Tablet) 100 mg PO BEDTIME [facility] Last Admin: 03/18/22 19:21 Dose: 100 mg Allergies Allergies Allergy/AdvReac Type Severity Reaction Status Date / Time No Known Allergies Allergy Verified 03/12/22 21:52 Assessment & Plan Assessment & Plan (1) CRISTINA (generalized anxiety disorder): Status: Acute Code(s): F41.1 - Generalized anxiety disorder (2) Bipolar 1 disorder: Status: Acute Code(s): F31.9 - Bipolar disorder, unspecified (3) Alcohol use disorder, moderate, dependence: Status: Acute Code(s): F10.20 - Alcohol dependence, uncomplicated (4) Cocaine use disorder: Status: Acute Code(s): F14.10 - Cocaine abuse, uncomplicated Plan Pt is a 66 y.o. Male who carries a dx of crack cocaine abuse, alcohol use disorder, and Bipolar I DO. 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 Pt contacted [facility] crisis himself to request an assessment seeking CCS, after he had been denied from [facility] due to them not accepting his insurance. He presented to [facility] ED on 03/12/22 due to SI with plan to OD on his medications and disclosed a recent suicide attempt by overdosing on his medication. He is not in withdrawal, did not require medical attention. Pt refilled his medications 3 days ago but they are all gone, appears to be misusing his medication. Pt has also been drinking daily, last drank a 32 oz beer on 03/12/22 but was not treated for withdrawal in the ED and currently denies any sx, prescribed xanax 1 mg TID and gabapentin 300 mg TID. His increased drinking behavior is new as of a few months ago, prior to that pt?s drug of choice was crack cocaine and he uses this when available. Pt has long hx of stability on gabapentin 800 mg TID, xanax 1 mg QID, and seroquel 800 mg daily. He has remote hx of being on lithium but this was discontinued due to elevated creatinine. Pt's bipolar diagnosis is unclear, as he endorses sx of impulsivity, however no clear hx of manic episodes. It appears pt has been on mood stabilizing medication to manage anxiety, PTSD, panic sx,and to help with sleep. 03/15 reports mood is better and no SI; patient wants to stay on Xanax and wants gabapentin increased back to 1000 t.i.d. for neuropathic pain.? Patient admits to prescription medication abuse, but minimizes the significance of it.? He says he is just starting with a VNA/lock box.? [employer] Vice President agrees that if this is in place and patient is only getting 1 week worth of medications (instead of the 30 day supply) that it is possible he could be continued on Xanax 1 mg t.i.d.,, which he has been getting for almost 2 years, and the gabapentin could be increased back to home dose. 03/16 Will increase gabapentin to 600 mg TID 03/17: Increase Klonopin to 1 mg b.i.d 03/18: Continue current regimen and plans 03/19 patient reports better mood and anxiety under better control; also pain is a little better. Denies any SI and is hopeful about staying sober and going to [facility] [place]. Will find out if [facility]NA will still see patient at [facility] [place] Plan: Q15 min safety checks, CV Was started on clonazepam 1 mg b.i.d. (by covering provider) Xanax 1mg TID PRN(pt on this for 2 years) Will likely lower amount offered Was increased to gabapentin to 600 mg TID for anxiety, neuropathic pain, and mood stability due to reported benefit on higher doses. Pt has weekly VNA and increased community services; need to confirm locked box has ACCS but has not been engaging as of late. Monitor response to medications. Monitor for safety in the milieu. Discharge on stabilization. Patient seen. Chart reviewed. Discussed with team. Obtain collateral contact info as needed I spent minutes with the patient and/or on the patient floor today, greater than?50% of which was spent counseling/coordinating care. Patient educated on: diagnosis, medication risk/benefits and substance abuse Informed Consent: understands Reason for contiued inpatient stay Substantial Risk for: stable for discharge
[2022-03-19] MEDS: QUEtiapine Fumarate 400 MG TABLET 800 MG PO (20:23)
[2022-03-19] MEDS: traZODone HCL 100 MG TABLET PO (20:23)
[2022-03-20 06:40] VITALS: BP 104/41; PULSE 67; RESP 16; TEMP 36.5; O2SAT 97
[2022-03-20] MEDS: [UNRECOGNIZED DRUG - OTHER] EYE-BOTH ×2 (11:06→19:54)
[2022-03-20] MEDS: BRINZOLAMIDE BRIMONIDINE EYE-BOTH ×2 (11:06→19:54)
[2022-03-20] MEDS: Folic Acid 1 MG TABLET PO (11:07)
[2022-03-20] MEDS: clonazePAM 1 MG TABLET PO ×2 (11:07→14:25)
[2022-03-20] MEDS: Omeprazole 40 MG CAPSULE.DR PO (11:07)
[2022-03-20] MEDS: Thiamine HCL 100 MG TABLET PO (11:07)
[2022-03-20] MEDS: Gabapentin 300 MG CAPSULE 600 MG PO ×3 (11:07→19:57)
--- NOTE | 2022-03-20 17:16 | P.PNPSI_ITS ---
Subjective Subjective Date of Service: 03/20/22 Reason For Visit: depression anxiety xanax gabapentin overdose Interim History: Patient reports he is in a good mood, denies any SI and says depression remains resolved. He says he is sleeping well. He also feels that addition of clonazepam remains helpful and he has not needed Xanax. Also continues to maintain that pain is better. He continues to want to go to the [facility] [place]. Mental Status Exam Mental Status Exam Narrative: Pt is alert and oriented; behavior is cooperative, friendly and calm; patient is not in distress; dressed in casual attire with unkempt hair but adequatel hygiene; mood is described as good and affect congruent; eye contact appropriate; Speech is normal rate, volume and prosody and not pressured; no p sychomotor agitation/retardation present; thought process is organized and goal directed; Thought content is on tx, disposition; otherwise pertinent to relevant topics and without any delusional content, paranoid ideations or grandiosity; no SI; no HI. There is no evidence of perceptual disturbance. Patients insight and judgment are intact. Diagnostics Vital Signs (24Hr): Vital Signs - 24 hr 03/19/22 18:00 03/20/22 06:40 Temperature 98 F 97.7 F Pulse Rate 70 67 Respiratory Rate 16 Blood Pressure 91/54 L 104/41 L Pulse Oximetry 98 97 Oxygen Delivery Method Room Air BMI result Body Mass Index 22.4 Labs Results: 03/12/22 18:39 03/12/22 18:40 Medications Medications Current Medications Acetaminophen (Acetaminophen 325 Mg Tablet) 650 mg PO Q6H PRN PRN Reason: Headache/Pain Mild Scale (1-3) Al Hydroxide/Mg Hydroxide (Magnesium Hydrox/Alum Hydrox 30 Ml Oral.Susp) 30 ml PO Q6H PRN PRN Reason: Heartburn/Nausea Last Admin: 03/18/22 23:34 Dose: 30 ml Alprazolam (Alprazolam 0.5 Mg Tablet) 1 mg PO TID PRN PRN Reason: anxiety Last Admin: 03/18/22 19:22 Dose: 1 mg Clonazepam (Clonazepam 1 Mg Tablet) 1 mg PO BID@0900,1400 LARISSA Last Admin: 03/20/22 14:25 Dose: 1 mg Clonidine HCl (Clonidine Hcl 0.1 Mg Tablet) 0.1 mg PO TID PRN; Protocol PRN Reason: hyperarousal Folic Acid (Folic Acid 1 Mg Tablet) 1 mg PO DAILY [facility] Last Admin: 03/20/22 11:07 Dose: 1 mg Gabapentin (Gabapentin 300 Mg Capsule) 600 mg PO TID [facility] Last Admin: 03/20/22 14:25 Dose: 600 mg Hydroxyzine HCl (Hydroxyzine Hcl 25 Mg Tablet) 25 mg PO Q6H PRN PRN Reason: Anxiety Last Admin: 03/18/22 23:34 Dose: 25 mg Ibuprofen (Ibuprofen 800 Mg Tablet) 800 mg PO TID PRN PRN Reason: mod pain Last Admin: 03/17/22 21:13 Dose: 800 mg Magnesium Hydroxide (Milk Of Magnesia 30 Ml Oral.Susp) 30 ml PO DAILY PRN PRN Reason: Constipation Non-Formulary Medication (Brinzolamide-Brimonidine [Simbrinza]) 1 drop EYE-BOTH BID [facility] Last Admin: 03/20/22 11:06 Dose: 1 drop Non-Formulary Medication (Netarsudil-Latanoprost [Rocklatan]) 1 drop EYE-BOTH BEDTIME [facility] Last Admin: 03/19/22 20:23 Dose: 1 drop Pt Own ( (Methazolamide 50 Mg)) 50 mg PO TID [facility] Last Admin: 03/20/22 14:25 Dose: 50 mg Omeprazole (Omeprazole 40 Mg Capsule.Dr) 40 mg PO DAILY [facility] Last Admin: 03/20/22 11:07 Dose: 40 mg Quetiapine Fumarate (Quetiapine Fumarate 400 Mg Tablet) 800 mg PO BEDTIME [facility] Last Admin: 03/19/22 20:23 Dose: 800 mg Thiamine HCl (Thiamine Hcl 100 Mg Tablet) 100 mg PO DAILY [facility] Last Admin: 03/20/22 11:07 Dose: 100 mg Trazodone HCl (Trazodone Hcl 100 Mg Tablet) 100 mg PO BEDTIME [facility] Last Admin: 03/19/22 20:23 Dose: 100 mg Allergies Allergies Allergy/AdvReac Type Severity Reaction Status Date / Time No Known Allergies Allergy Verified 03/12/22 21:52 Assessment & Plan Assessment & Plan (1) CRISTINA (generalized anxiety disorder): Status: Acute Code(s): F41.1 - Generalized anxiety disorder (2) Bipolar 1 disorder: Status: Acute Code(s): F31.9 - Bipolar disorder, unspecified (3) Alcohol use disorder, moderate, dependence: Status: Acute Code(s): F10.20 - Alcohol dependence, uncomplicated (4) Cocaine use disorder: Status: Acute Code(s): F14.10 - Cocaine abuse, uncomplicated Plan Pt is a 66 y.o. Male who carries a dx of crack cocaine abuse, alcohol use disorder, and Bipolar I DO. 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 Pt contacted [facility] crisis himself to request an assessment seeking CCS, after he had been denied from [facility] due to them not accepting his insurance. He presented to [facility] ED on 03/12/22 due to SI with plan to OD on his medications and disclosed a recent suicide attempt by overdosing on his medication. He is not in withdrawal, did not require medical attention. Pt refilled his medications 3 days ago but they are all gone, appears to be misusing his medication. Pt has also been drinking daily, last drank a 32 oz beer on 03/12/22 but was not treated for withdrawal in the ED and currently denies any sx, prescribed xanax 1 mg TID and gabapentin 300 mg TID. His increased drinking behavior is new as of a few months ago, prior to that pt?s drug of choice was crack cocaine and he uses this when available. Pt has long hx of stability on gabapentin 800 mg TID, xanax 1 mg QID, and seroquel 800 mg daily. He has remote hx of being on lithium but this was discontinued due to elevated creatinine. Pt's bipolar diagnosis is unclear, as he endorses sx of impulsivity, however no clear hx of manic episodes. It appears pt has been on mood stabilizing medication to manage anxiety, PTSD, panic sx,and to help with sleep. 03/15 reports mood is better and no SI; patient wants to stay on Xanax and wants gabapentin increased back to 1000 t.i.d. for neuropathic pain.? Patient admits to prescription medication abuse, but minimizes the significance of it.? He says he is just starting with a VNA/lock box.? Medical Voucher Clerk agrees that if this is in place and patient is only getting 1 week worth of medications (instead of the 30 day supply) that it is possible he could be continued on Xanax 1 mg t.i.d.,, which he has been getting for almost 2 years, and the gabapentin could be increased back to home dose. 03/16 Will increase gabapentin to 600 mg TID 03/17: Increase Klonopin to 1 mg b.i.d 03/18: Continue current regimen and plans 03/19 patient reports better mood and anxiety under better control; also pain is a little better. Denies any SI and is hopeful about staying sober and going to [facility] [place]. Will find out if VNA will still see patient at [facility] [place] Plan: Q15 min safety checks, CV Was started on clonazepam 1 mg b.i.d. (by covering provider) Xanax 1mg TID PRN(pt on this for 2 years) Will likely lower amount offered Was increased to gabapentin to 600 mg TID for anxiety, neuropathic pain, and mood stability due to reported benefit on higher doses. Pt has weekly VNA and increased community services; need to confirm locked box has ACCS but has not been engaging as of late. Monitor response to medications. Monitor for safety in the milieu. Discharge on stabilization. Patient seen. Chart reviewed. Discussed with team. Obtain collateral contact info as needed I spent minutes with the patient and/or on the patient floor today, greater than?50% of which was spent counseling/coordinating care. Patient educated on: diagnosis, medication risk/benefits and medical condition Informed Consent: understands Reason for contiued inpatient stay Substantial Risk for: stable for discharge
[2022-03-20 18:00] VITALS: BP 119/82; PULSE 89; RESP 16; TEMP 36.6; O2SAT 99
[2022-03-20] MEDS: QUEtiapine Fumarate 400 MG TABLET 800 MG PO (19:56)
[2022-03-20] MEDS: traZODone HCL 100 MG TABLET PO (19:57)
[2022-03-20] MEDS: cloNIDine HCL 0.1 MG TABLET PO (20:38)
[2022-03-20] MEDS: ALPRAZolam 0.5 MG TABLET 1 MG PO (20:38)
[2022-03-21 06:19] VITALS: BP 99/58; PULSE 66; RESP 18; TEMP 36.9; O2SAT 98
[2022-03-21] MEDS: Gabapentin 300 MG CAPSULE 600 MG PO ×3 (09:29→22:09)
[2022-03-21] MEDS: Thiamine HCL 100 MG TABLET PO (09:30)
[2022-03-21] MEDS: Folic Acid 1 MG TABLET PO (09:30)
[2022-03-21] MEDS: clonazePAM 1 MG TABLET PO ×2 (09:30→14:34)
[2022-03-21] MEDS: Omeprazole 40 MG CAPSULE.DR PO (09:30)
[2022-03-21 16:55] VITALS: BP 99/57; PULSE 64; TEMP 35.8
--- NOTE | 2022-03-21 18:13 | HO.PSYCHPN ---
Subjective Subjective Date of Service: 03/21/22 Reason For Visit: depression anxiety xanax gabapentin overdose Interim History: Today learned that the [facility] will not except patient unless he discontinues all benzodiazepines. food prep worker and software writer discussed this with patient who was disappointed but says he wants to remain on his medications and so will instead return home. Patient continues to report that his mood is good and he is without any SI; also remains without any HI or anger towards his neighbors. He says that perhaps he'll go to the [facility] which he has been to before and likes. SW will inquire. Otherwise his plan is to return home, take his chances in housing court and see if he can get more time in his apartment through an appeal. He also says he is seriously considering moving back down to [place] to live with his daughter since it is cheaper to live down there. He says that he feels ready to go home tomorrow. Mental Status Exam Mental Status Exam Narrative: Pt is alert and oriented; behavior is cooperative, friendly and calm; patient is not in distress; dressed in casual attire with unkempt hair but adequatel hygiene; mood is described as good and affect congruent; eye contact appropriate; Speech is normal rate, volume and prosody and not pressured; no psychomotor agitation/retardation present; thought process is organized and goal directed; Thought content is on tx, disposition; otherwise pertinent to relevant topics and without any delusional content, paranoid ideations or grandiosity; no SI; no HI. There is no evidence of perceptual disturbance. Patients insight and judgment are intact. Diagnostics Vital Signs (24Hr): Vital Signs - 24 hr 03/21/22 06:19 Temperature 98.4 F Pulse Rate 66 Respiratory Rate 18 Blood Pressure 99/58 L Pulse Oximetry 98 Oxygen Delivery Method Room Air BMI result Body Mass Index 22.4 Labs Results: 03/12/22 18:39 03/12/22 18:40 Medications Medications Current Medications Acetaminophen (Acetaminophen 325 Mg Tablet) 650 mg PO Q6H PRN PRN Reason: Headache/Pain Mild Scale (1-3) Al Hydroxide/Mg Hydroxide (Magnesium Hydrox/Alum Hydrox 30 Ml Oral.Susp) 30 ml PO Q6H PRN PRN Reason: Heartburn/Nausea Last Admin: 03/18/22 23:34 Dose: 30 ml Alprazolam (Alprazolam 0.5 Mg Tablet) 1 mg PO TID PRN PRN Reason: anxiety Last Admin: 03/20/22 20:38 Dose: 1 mg Clonazepam (Clonazepam 1 Mg Tablet) 1 mg PO BID@0900,1400 [facility] Last Admin: 03/21/22 14:34 Dose: 1 mg Clonidine HCl (Clonidine Hcl 0.1 Mg Tablet) 0.1 mg PO TID PRN; Protocol PRN Reason: hyperarousal Last Admin: 03/20/22 20:38 Dose: 0.1 mg Folic Acid (Folic Acid 1 Mg Tablet) 1 mg PO DAILY [facility] Last Admin: 03/21/22 09:30 Dose: 1 mg Gabapentin (Gabapentin 300 Mg Capsule) 600 mg PO TID [facility] Last Admin: 03/21/22 14:34 Dose: 600 mg Hydroxyzine HCl (Hydroxyzine Hcl 25 Mg Tablet) 25 mg PO Q6H PRN PRN Reason: Anxiety Last Admin: 03/18/22 23:34 Dose: 25 mg Ibuprofen (Ibuprofen 800 Mg Tablet) 800 mg PO TID PRN PRN Reason: mod pain Last Admin: 03/17/22 21:13 Dose: 800 mg Magnesium Hydroxide (Milk Of Magnesia 30 Ml Oral.Susp) 30 ml PO DAILY PRN PRN Reason: Constipation Non-Formulary Medication (Brinzolamide-Brimonidine [Simbrinza]) 1 drop EYE-BOTH BID [facility] Last Admin: 03/21/22 10:38 Dose: Not Given Non-Formulary Medication (Netarsudil-Latanoprost [Rocklatan]) 1 drop EYE-BOTH BEDTIME [facility] Last Admin: 03/20/22 20:00 Dose: 1 drop Pt Own ( (Methazolamide 50 Mg)) 50 mg PO TID [facility] Last Admin: 03/21/22 14:34 Dose: 50 mg Omeprazole (Omeprazole 40 Mg Capsule.Dr) 40 mg PO DAILY [facility] Last Admin: 03/21/22 09:30 Dose: 40 mg Quetiapine Fumarate (Quetiapine Fumarate 400 Mg Tablet) 800 mg PO BEDTIME [facility] Last Admin: 03/20/22 19:56 Dose: 800 mg Thiamine HCl (Thiamine Hcl 100 Mg Tablet) 100 mg PO DAILY [facility] Last Admin: 03/21/22 09:30 Dose: 100 mg Trazodone HCl (Trazodone Hcl 100 Mg Tablet) 100 mg PO BEDTIME [facility] Last Admin: 03/20/22 19:57 Dose: 100 mg Allergies Allergies Allergy/AdvReac Type Severity Reaction Status Date / Time No Known Allergies Allergy Verified 03/12/22 21:52 Assessment & Plan Assessment & Plan (1) CRISTINA (generalized anxiety disorder): Status: Acute Code(s): F41.1 - Generalized anxiety disorder (2) Bipolar 1 disorder: Status: Acute Code(s): F31.9 - Bipolar disorder, unspecified (3) Alcohol use disorder, moderate, dependence: Status: Acute Code(s): F10.20 - Alcohol dependence, uncomplicated (4) Cocaine use disorder: Status: Acute Code(s): F14.10 - Cocaine abuse, uncomplicated Plan Pt is a 66 y.o. Male who carries a dx of crack cocaine abuse, alcohol use disorder, and Bipolar I DO. 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 Pt contacted [facility] himself to request an assessment seeking CCS, after he had been denied from [facility] due to them not accepting his insurance. He presented to [facility] on 03/12/22 due to SI with plan to OD on his medications and disclosed a recent suicide attempt by overdosing on his medication. He is not in withdrawal, did not require medical attention. Pt refilled his medications 3 days ago but they are all gone, appears to be misusing his medication. Pt has also been drinking daily, last drank a 32 oz beer on 03/12/22 but was not treated for withdrawal in the ED and currently denies any sx, prescribed xanax 1 mg TID and gabapentin 300 mg TID. His increased drinking behavior is new as of a few months ago, prior to that pt?s drug of choice was crack cocaine and he uses this when available. Pt has long hx of stability on gabapentin 800 mg TID, xanax 1 mg QID, and seroquel 800 mg daily. He has remote hx of being on lithium but this was discontinued due to elevated creatinine. Pt's bipolar diagnosis is unclear, as he endorses sx of impulsivity, however no clear hx of manic episodes. It appears pt has been on mood stabilizing medication to manage anxiety, PTSD, panic sx,and to help with sleep. 03/15 reports mood is better and no SI; patient wants to stay on Xanax and wants gabapentin increased back to 1000 t.i.d. for neuropathic pain.? Patient admits to prescription medication abuse, but minimizes the significance of it.? He says he is just starting with a VNA/lock box.? Mastercam Programmer agrees that if this is in place and patient is only getting 1 week worth of medications (instead of the 30 day supply) that it is possible he could be continued on Xanax 1 mg t.i.d.,, which he has been getting for almost 2 years, and the gabapentin could be increased back to home dose. 03/16 Will increase gabapentin to 600 mg TID 03/17: Increase Klonopin to 1 mg b.i.d 03/18: Continue current regimen and plans 03/19 patient reports better mood and anxiety under better control; also pain is a little better. Denies any SI and is hopeful about staying sober and going to [facility]. Will find out if VNA will still see patient at [facility] 03/21 patient remains in good mood without any SI or HI; feels ready for discharge home. Declines [facility] since he wants to remain on benzodiazepines. Is planning to perhaps go to the [facility] but is also considering moving down to [place] to live with his daughter. Patient has a VNA that comes weekly and will place his medications in a locked box. Because of this software writer agrees to continue both gabapentin benzodiazepines. Since patient has been on clonazepam he has not needed Xanax very much and software writer will likely lower the dose available. Patient has remained stable for several days her and is not in imminent risk for harm to self or others. He is future oriented and has support in the community. Patient's request for discharge honored. Plan: Q15 min safety checks, CV Was started on clonazepam 1 mg b.i.d. (by covering provider) Xanax 1mg TID PRN(pt on this for 2 years) Will likely lower amount offered Was increased to gabapentin to 600 mg TID for anxiety, neuropathic pain, and mood stability due to reported benefit on higher doses. Pt has weekly VNA and increased community services; need to confirm locked box has ACCS but has not been engaging as of late. Monitor response to medications. Monitor for safety in the milieu. Discharge on stabilization. Patient seen. Chart reviewed. Discussed with team. Obtain collateral contact info as needed I spent minutes with the patient and/or on the patient floor today, greater than?50% of which was spent counseling/coordinating care. Patient educated on: medication risk/benefits Informed Consent: understands Reason for contiued inpatient stay Substantial Risk for: stable for discharge
[2022-03-21] MEDS: QUEtiapine Fumarate 400 MG TABLET 800 MG PO (22:09)
[2022-03-21] MEDS: traZODone HCL 100 MG TABLET PO (22:09)
[2022-03-21] MEDS: [UNRECOGNIZED DRUG - OTHER] EYE-BOTH (22:12)
[2022-03-21] MEDS: BRINZOLAMIDE BRIMONIDINE EYE-BOTH (22:12)
[2022-03-21] MEDS: ALPRAZolam 0.5 MG TABLET 1 MG PO (22:20)
[2022-03-22 06:29] VITALS: BP 92/54; PULSE 68; RESP 16; TEMP 36.7; O2SAT 97
[2022-03-22 07:00] VITALS: BMI 21.6
[2022-03-22] MEDS: clonazePAM 1 MG TABLET PO ×2 (08:26→13:24)
[2022-03-22] MEDS: Gabapentin 300 MG CAPSULE 600 MG PO ×2 (08:26→14:10)
[2022-03-22] MEDS: Thiamine HCL 100 MG TABLET PO (08:26)
[2022-03-22] MEDS: Folic Acid 1 MG TABLET PO (08:26)
[2022-03-22] MEDS: Omeprazole 40 MG CAPSULE.DR PO (08:26)
--- NOTE | 2022-03-22 10:03 | P.DS_ITS ---
DS: Providers Provider Date of Service: 03/22/22 Date of admission: 03/13/22 12:48 Date of discharge: 03/22/22 Primary care physician: Karlos Zuniga III, MD Attending physician on admission: Leonel Guzman Attending physician on discharge: Leonel Guzman DS: Diagnosis Discharge Diagnosis (1) CRISTINA (generalized anxiety disorder): Status: Acute (2) Bipolar 1 disorder: Status: Acute (3) Alcohol use disorder, moderate, dependence: Status: Acute (4) Cocaine use disorder: Status: Acute DS: Medications Discharge Medications Home Medications: Previous Rx's Medication Instructions Recorded Methazolamide 50 mg PO TID 30 days #90 caps 03/22/22 alprazolam 1 mg tablet 1 mg PO DAILY PRN panic attack(s) 03/22/22 7 days #7 tabs brinzolamide 1 %-brimonidine 0.2 % 1 drp ophthalmic (eye) BID 30 days 03/22/22 eye drops,suspension (Simbrinza) #8 mL clonazepam 1 mg tablet 1 mg PO BID@0900,1400 7 days #14 03/22/22 tabs folic acid 1 mg tablet 1 mg PO DAILY 30 days #30 tabs 03/22/22 gabapentin 300 mg capsule 600 mg PO TID 7 days #42 caps 03/22/22 netarsudil 0.02 %-latanoprost 1 drp ophthalmic (eye) BEDTIME 30 03/22/22 0.005 % eye drops (Rocklatan) days #2.5 mL omeprazole 20 mg capsule,delayed 20 mg PO DAILY 30 days #30 caps 03/22/22 release quetiapine 400 mg tablet 800 mg PO BEDTIME 30 days #60 tabs 03/22/22 trazodone 100 mg tablet 100 mg PO BEDTIME PRN insomnia 30 03/22/22 days #30 tabs Mental Status Exam Mental Status Exam Narrative: Pt is alert and oriented; behavior is cooperative, friendly and calm; patient is not in distress; dressed in casual attire, well groomed with adequate hygiene; mood is described as good and affect congruent; eye contact appropriate; Speech is normal rate, volume and prosody and not pressured; no psychomotor agitation/retardation present; thought process is organized and goal directed; Thought content is on tx, disposition; otherwise pertinent to relevant topics and without any delusional content, paranoid ideations or grandiosity; no SI; no HI. There is no evidence of perceptual disturbance. Patients insight and judgment are intact. DS: Summary Hospital Course Hospital Course: Pt is a 66 y.o. Male who carries a dx of crack cocaine abuse, alcohol use disorder, and Bipolar I DO. 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 Pt contacted [facility] crisis himself to request an assessment seeking CCS, after he had been denied from [facility] due to them not accepting his insurance. He presented [place] [facility] on 03/12/22 due to SI with plan to OD on his medications and disclosed a recent suicide attempt by overdosing on his medication. He is not in withdrawal, did not require medical attention. Pt refilled his medications 3 days ago but they are all gone, appears to be misusing his medication. Pt has also been drinking daily, last drank a 32 oz beer on 03/12/22 but was not treated for withdrawal in the ED and currently denies any sx, prescribed xanax 1 mg TID and gabapentin 300 mg TID. His increased drinking behavior is new as of a few months ago, prior to that pt?s drug of choice was crack cocaine and he uses this when available. Pt has long hx of stability on gabapentin 800 mg TID, xanax 1 mg QID, and seroquel 800 mg daily. He has remote hx of being on lithium but this was discontinued due to elevated creatinine. Pt's bipolar diagnosis is unclear, as he endorses sx of impulsivity, however no clear hx of manic episodes. It appears pt has been on mood stabilizing medication to manage anxiety, PTSD, panic sx,and to help with sleep. 03/15 reports mood is better and no SI; patient wants to stay on Xanax and wants gabapentin increased back to 1000 t.i.d. for neuropathic pain.? Patient admits to prescription medication abuse, but minimizes the significance of it.? He says he is just starting with a VNA/lock box.? Teacher Early Childhood Development agrees that if this is in place and patient is only getting 1 week worth of medications (instead of the 30 day supply) that it is possible he could be continued on Xanax 1 mg t.i.d.,, which he has been getting for almost 2 years, and the gabapentin could be increased back to home dose. Increased gabapentin to 600 mg TID for neuropathic pain and patient reported that pain was significantly decreased. 03/19 patient reports better mood and anxiety under better control; also pain is a little better.? Denies any SI and is hopeful about staying sober and going to [facility].? Will find out if VNA will still see patient at [facility] 03/21 patient remains in good mood without any SI or HI; feels ready for discharge home.? Declines [facility] since he wants to remain on benzodiazepines.? Is planning to perhaps go to [facility] but is also considering moving down to [place] to live with his daughter.? Patient has a VNA that comes weekly and will place his medications in a locked box.? Because of this clinical writer agrees to continue both gabapentin benzodiazepines however will only prescribe 1 week scripts at a time for these medications so as to limit risk of abuse..? Since patient has been on clonazepam he has not needed Xanax very much and clinical writer will likely lower the dose available.? Patient has remained stable for several days her and is not in imminent risk for harm to self or others.? He is future oriented and has support in the community.? Patient's request for discharge honored. Time spent discussing smoking cessation with patient: 3 to 10 minutes Status at Discharge Functional status at discharge: independent ambulation Overall status at discharge: patient is back to baseline Time Spent with Patient Time attestation: Total time spent providing and/or coordinating discharge services: Time spent: Less than 30 minutes Discharge Plan Discharge Patient Disposition: Home, Self-Care Discharge Diagnosis: Bipolar disorder type 1, moderate most recent episode depressed, in full remission Referrals: Kwadwo Panda RN [Other] - 1 Week (fax [phone]) Therapy: Kristina Park ([facility]) [Other] - 04/05/22 12:00 pm (Telehealth ) Psych Prescriber: Kristina Blanton ([facility]) [Other] - 04/23/22 2:00 pm (Telehealth ) Karlos Zuniga III, MD [Primary Care Provider] - 04/06/22 9:00 am (in office) Discharge Medications: New gabapentin 300 mg Capsule 600 mg PO TID 7 Days Qty: 42 3RF clonazepam 1 mg Tablet 1 mg PO BID@0900,1400 7 Days Qty: 14 3RF Methazolamide 50 mg PO TID 30 Days Qty: 90 0RF Continued Simbrinza 1-0.2 % drops,suspension 1 drp ophthalmic (eye) BID 30 Days Qty: 8 0RF Rocklatan 0.02-0.005 % drops 1 drp ophthalmic (eye) BEDTIME 30 Days Qty: 2.5 0RF Changed alprazolam 1 mg tablet 1 mg PO DAILY PRN (Reason: panic attack(s)) 7 Days Qty: 7 3RF trazodone 100 mg tablet 100 mg PO BEDTIME PRN (Reason: insomnia) 30 Days Qty: 30 0RF omeprazole 20 mg capsule,delayed release(DR/EC) 20 mg PO DAILY 30 Days Qty: 30 0RF folic acid 1 mg tablet 1 mg PO DAILY 30 Days Qty: 30 0RF quetiapine 400 mg tablet 800 mg PO BEDTIME 30 Days Qty: 60 0RF Discontinued gabapentin 300 mg capsule 1 cap PO TID Discharge Orders: Discharge Order (Routine); Ordered 03/22/22 Ordered By: Leonel Guzman Diet: Regular diet Activity on Discharge: As tolerated Stand Alone Forms: Patient Portal Discharge page, Community Support Care Plan Goals: Maintain mood and safe behaviors Take medications as prescribed Continue to pursue sobriety Practice coping skills Continue with outpatient providers and reach out to them as needed Health Concerns: Mood stability and behaviors Sobriety Glaucoma Chronic back/leg pain Plan of Treatment: Follow up with your PCP, psychiatric provider and other outpatient providers regarding above concerns Take medications as prescribed Assessment: Risk assessment at time of discharge:? Patient was interviewed prior to discharge and found to be fully oriented and without any SI or HI. Patient has insight and demonstrates good judgment in terms of wanting to pursue treatment. Patient is not in imminent risk of harm to self or others and has a safety plan that includes presenting to the closest ER or calling 911 if feeling unsafe.? Patient has been observed closely by nursing and unit staff throughout admission; patient has not engaged in any behaviors that suggest dangerousness to self or others and has demonstrated appropriate behaviors and impulse control Discharge Date/Time: 03/22/22 14:40
[2022-03-22] MEDS: [UNRECOGNIZED DRUG - OTHER] EYE-BOTH (13:10)
[2022-03-22] MEDS: BRINZOLAMIDE BRIMONIDINE EYE-BOTH (13:10)
== END 2022-03-22 14:40 | disposition home or self-care (01) | DRG 885 ==
LOC: HO.ED 22:06 → HO.PM5 03-13 12:53
PROVIDERS: Clinical Nurse Specialist Psychiatric/Mental Health, Adult; Admitting Provider Psychiatry & Neurology Psychiatry; Emergency Provider Emergency Medicine; PCP Internal Medicine; Visit Provider Psychiatry & Neurology Psychiatry
DX: F31.32 Bipolar disorder, current episode depressed, moderate (principal); R45.851 Suicidal ideations; F41.1 Generalized anxiety disorder; F10.20 Alcohol dependence, uncomplicated; F14.10 Cocaine abuse, uncomplicated; Z20.822 Contact with and (suspected) exposure to COVID-19; Z79.899 Other long term (current) drug therapy
CPT/HCPCS: 36415; 80048; 80061; 80076; 80143; 80179; 80307; 81003; 82077; 82607; 82746; 83036; 83735; 84439; 84443; 85025; 87635; 93005; 99285